=== PATIENT | male | born 1975 | race Two or more races ===

== ENCOUNTER 2020-03-18 08:45 | Inpatient (IN) | payer SELFPAY ==
[~2020-03-18] VITALS: Ht 182.9 cm; Wt 168.0 kg
--- NOTE | 2020-03-18 09:20 | NUR ---
Pt c/o of dyspnea at rest with cough and diarrhea, RA spo2 65% on arrival. Tachycardic, hypertensive. Skin diaphoretic. Denies pain. Covid test negative yesterday.
[2020-03-18 09:35] LABS: BASOPHILS % (AUTO) 1 % (0-1); EOSINOPHILS % (AUTO) 1 % (1-7); LYMPHOCYTES % (AUTO) 8 % (22-44); MEAN CORPUSCULAR HEMOGLOBIN 30.1 pg (27.5-34.5); MEAN CORPUSCULAR HGB CONC 33.1 g/dL (33.2-36.2); MEAN PLATELET VOLUME 8.8 fL (7.4-10.4); MONOCYTES % (AUTO) 6 % (2-9); PLATELET COUNT 241 x10^3/uL (130-400); RED BLOOD COUNT 5.27 x10^6/uL (4.38-5.82)
[2020-03-18 09:38] LABS: PLATELET (DIC) 246 x10^3/uL (130-400)
[2020-03-18 09:47] LABS: ALBUMIN 2.4 g/dL (3.4-5.0); ANION GAP 7 mmol/L (5-15); CALCIUM 8.2 mg/dL (8.5-10.1); CHLORIDE 103 mmol/L (98-107)
[2020-03-18 09:54] LABS: ALANINE AMINOTRANSFERASE 107 U/L (12-78); ALKALINE PHOSPHATASE 102 U/L (45-117); BILIRUBIN,TOTAL 1.1 mg/dL (0.2-1.0); CREATININE 0.95 mg/dL (0.7-1.3); TOTAL PROTEIN 8.1 g/dL (6.4-8.2)
[2020-03-18] MEDS ORDERED: CEFTRIAXONE PMX 1GM/50ML 50 ML ONE (09:59)
[2020-03-18] MEDS ORDERED: AZITHROMYCIN 500 MG in SODIUM CHLORIDE 0.9% 250 ML IVPB ONE (10:00)
[2020-03-18] MEDS ORDERED: PLEASE ENTER ALLERGIES MC SCH (10:00)
[2020-03-18] MEDS ORDERED: CEFTRIAXONE PMX 1GM/50ML 50 ML IVPB ONE (10:00)
--- NOTE | 2020-03-18 10:26 | NUR ---
Pt resting, ABX, fluids infusing.
[2020-03-18] MEDS ORDERED: SODIUM CHLORIDE FLUSH 10ML SYR IVF PRN (10:30)
[2020-03-18] MEDS ORDERED: SODIUM CHLORIDE 0.9% 1,000 ML IV ONE (10:30)
[2020-03-18 10:35] LABS: MD YES
[2020-03-18 10:37] LABS: BAND#(MANUAL) 0.68 x10^3/uL; BANDS%(MANUAL) 5 % (0-7); LYMPH#(MANUAL) 1.09 x10^3/uL (1-3.4); LYMPHS% (MANUAL) 8 % (22-44); MONOS#(MANUAL) 0.27 x10^3/uL (0.3-2.7); MONOS% (MANUAL) 2 % (2-9); REACTIVE LYMPHS # (MANUAL) 0.27 x10^3/uL (0-0); REACTIVE LYMPHS % (MANUAL) 2 % (0-0); SEG#(MANUAL) 11.29 x10^3/uL (1.8-6.8); SEGS% (MANUAL) 83 % (42-75)
[2020-03-18 10:39] LABS: <PLATELET ESTIMATE> ADEQUATE; ANISOCYTOSIS 1+; LARGE PLATELETS 1+; POLYCHROMASIA 1+
[2020-03-18] MEDS: INSULIN LISPRO 100 UNITS/ML, PEN SQ-INSULIN SCH ×3 (11:00→21:22)
[2020-03-18 11:27] LABS: FIBRINOGEN 420 mg/dL (200-340); PROTIME 11.4 Seconds (9.6-11.5); PTT 26 Seconds (25-31)
[2020-03-18 11:28] LABS: D-DIMER (DIC) > 35.20 ug/mlFEU (0.00-0.52)
[2020-03-18] MEDS ORDERED: ASCORBIC ACID 500 MG TABLET ONE (11:56)
[2020-03-18] MEDS ORDERED: CHOLECALCIFEROL 5,000u TAB ONE (11:56)
[2020-03-18] MEDS ORDERED: DEXAMETHASONE 4 MG/ML, 1ML ONE (11:56)
[2020-03-18] MEDS ORDERED: ZINC SULFATE 220 MG CAPSULE ONE (11:56)
[2020-03-18] MEDS ORDERED: BENZONATATE 100 MG CAPSULE ONE (11:57)
[2020-03-18] MEDS ORDERED: DOXYCYCLINE 100MG TABLET ONE (11:57)
[2020-03-18] MEDS: ASCORBIC ACID 500 MG TABLET PO SCH ×3 (11:59→21:20)
[2020-03-18] MEDS: DOXYCYCLINE 100MG TABLET PO SCH ×2 (11:59→21:20)
[2020-03-18] MEDS ORDERED: REMDESIVIR 200 MG in SODIUM CHLORIDE 0.9% 250 ML IVPB ONE (12:00)
[2020-03-18] MEDS: DEXAMETHASONE 4 MG/ML, 1ML IVPush SCH (12:00)
[2020-03-18] MEDS: ZINC SULFATE 220 MG CAPSULE PO SCH (12:00)
[2020-03-18] MEDS: BENZONATATE 100 MG CAPSULE PO SCH ×3 (12:00→21:21)
--- NOTE | 2020-03-18 12:07 | NUR ---
Pt has improved HR. ABX infusing. Pharm request sent for meds. Pt without needs at this time.
[2020-03-18 12:47] LABS: RAPID INFLUENZA A Negative (Negative); RAPID INFLUENZA B Negative (Negative)
[2020-03-18] MEDS ORDERED: ONDANSETRON ODT 4 MG PO PRN (13:00)
[2020-03-18] MEDS ORDERED: MELATONIN 5 MG TABLET PO PRN (13:00)
[2020-03-18] MEDS ORDERED: ONDANSETRON 2MG/ML, 2ML IVPush PRN (13:00)
[2020-03-18] MEDS ORDERED: ACETAMINOPHEN 325 MG TABLET PO PRN (13:00)
[2020-03-18] MEDS ORDERED: ENOXAPARIN 30 MG/0.3 ML SQ SCH (13:00)
[2020-03-18] MEDS ORDERED: OMNIPAQUE 350 MG/ML, 100ML BOTTLE ONE (13:20)
[2020-03-18] MEDS ORDERED: AMLODIPINE 5 MG TABLET ONE ×2 (13:43→13:54)
[2020-03-18] MEDS ORDERED: LISINOPRIL 20 MG TABLET ONE ×2 (13:43→13:58)
[2020-03-18] MEDS: LISINOPRIL 20 MG TABLET PO SCH (13:47)
[2020-03-18] MEDS: AMLODIPINE 5 MG TABLET PO SCH (13:47)
[2020-03-18] MEDS: PIPERACILLIN/TAZO/PMX 4.5GM 100 ML IV SCH ×3 (13:48→23:20)
[2020-03-18] MEDS ORDERED: LISINOPRIL 5 MG TABLET ONE ×2 (13:50→13:54)
[2020-03-18] MEDS: CHOLECALCIFEROL 5,000u TAB PO SCH (13:59)
--- NOTE | 2020-03-18 14:17 | NUR ---
No change in pt baseline from arrival. States not feeling any better. Pt skin no longer diaphoretic, HR and BP improved. Report to floor RN. Waiting for room to be clean and then transfer. Pt updated on POC, VS updated.
[2020-03-18] MEDS: GUAIFENESIN ER 600 MG TABLET PO SCH ×2 (15:14→21:20)
[2020-03-18 15:16] VITALS: BP 177/120
[2020-03-18] MEDS ORDERED: hydrALAzine 20 MG/ML, 1ML IV ONE (15:30)
[2020-03-18] MEDS: ENOXAPARIN 80 MG/0.8 ML SQ SCH (15:36)
[2020-03-18 16:35] VITALS: BP 139/90
[2020-03-18] MEDS: FUROSEMIDE 20 MG/2 ML IV SCH (17:06)
[2020-03-18 19:17] VITALS: BP 139/85
[2020-03-19 00:13] VITALS: BP 140/94
[2020-03-19] MEDS: ENOXAPARIN 80 MG/0.8 ML SQ SCH ×2 (03:27→14:51)
[2020-03-19 05:30] LABS: MEAN CORPUSCULAR HEMOGLOBIN 29.7 pg (27.5-34.5); MEAN CORPUSCULAR HGB CONC 32.6 g/dL (33.2-36.2); MEAN PLATELET VOLUME 8.6 fL (7.4-10.4); PLATELET COUNT 263 x10^3/uL (130-400); RED BLOOD COUNT 4.93 x10^6/uL (4.38-5.82); RED CELL DISTRIBUTION WIDTH 14.3 % (9.4-14.8)
[2020-03-19 05:38] LABS: ALBUMIN 2.2 g/dL (3.4-5.0); ANION GAP 6 mmol/L (5-15); CALCIUM 8.2 mg/dL (8.5-10.1); CHLORIDE 105 mmol/L (98-107)
[2020-03-19] MEDS: ASCORBIC ACID 500 MG TABLET PO SCH ×3 (05:40→16:20)
[2020-03-19] MEDS: PIPERACILLIN/TAZO/PMX 4.5GM 100 ML IV SCH ×2 (05:40→12:02)
[2020-03-19 05:43] LABS: ALANINE AMINOTRANSFERASE 100 U/L (12-78); ALKALINE PHOSPHATASE 86 U/L (45-117); BILIRUBIN,TOTAL 0.7 mg/dL (0.2-1.0); CREATININE 0.85 mg/dL (0.7-1.3); TOTAL PROTEIN 7.6 g/dL (6.4-8.2)
[2020-03-19 06:34] LABS: MD YES
[2020-03-19 06:36] LABS: ANISOCYTOSIS 1+; BAND#(MANUAL) 0.25 x10^3/uL; BANDS%(MANUAL) 2 % (0-7); LYMPH#(MANUAL) 1.65 x10^3/uL (1-3.4); LYMPHS% (MANUAL) 13 % (22-44); METAMYELOCYTES# (MANUAL) 0.13 x10^3/uL (0-0); METAMYELOCYTES% (MANUAL) 1 % (0-1); MONOS#(MANUAL) 0.76 x10^3/uL (0.3-2.7); MONOS% (MANUAL) 6 % (2-9); MYELOCYTES# (MANUAL) 0.13 x10^3/uL (0-0); MYELOCYTES% (MANUAL) 1 % (0-0); POLYCHROMASIA 1+; SEG#(MANUAL) 9.78 x10^3/uL (1.8-6.8); SEGS% (MANUAL) 77 % (42-75)
[2020-03-19 06:37] LABS: <PLATELET ESTIMATE> ADEQUATE; <PLT MORPHOLOGY> NORMAL PLT MORPH
[2020-03-19] MEDS ORDERED: DEXAMETHASONE 4 MG/ML, 5ML ONE (07:19)
[2020-03-19] MEDS: DEXAMETHASONE 4 MG/ML, 1ML IVPush SCH (07:28)
[2020-03-19] MEDS: INSULIN LISPRO 100 UNITS/ML, PEN SQ-INSULIN SCH ×3 (07:28→16:19)
[2020-03-19] MEDS: FUROSEMIDE 20 MG/2 ML IV SCH ×2 (07:28→16:21)
[2020-03-19] MEDS: ZINC SULFATE 220 MG CAPSULE PO SCH (07:29)
[2020-03-19] MEDS: LISINOPRIL 20 MG TABLET PO SCH (07:29)
[2020-03-19] MEDS: DOXYCYCLINE 100MG TABLET PO SCH (07:29)
[2020-03-19] MEDS: BENZONATATE 100 MG CAPSULE PO SCH ×2 (07:29→16:20)
[2020-03-19] MEDS: GUAIFENESIN ER 600 MG TABLET PO SCH (07:29)
[2020-03-19] MEDS: CHOLECALCIFEROL 5,000u TAB PO SCH (07:29)
[2020-03-19] MEDS: AMLODIPINE 5 MG TABLET PO SCH (07:30)
[2020-03-19 07:55] VITALS: BP 155/82
[2020-03-19] MEDS ORDERED: VANCOMYCIN PER PHARMACY MC PRN (08:30)
[2020-03-19] MEDS ORDERED: PHARMACOKINETIC MONITORING MC PRN (09:00)
[2020-03-19] MEDS ORDERED: VANCOMYCIN 3,000 MG in SODIUM CHLORIDE 0.9% 500 ML IV ONE (09:00)
[2020-03-19] MEDS ORDERED: REMDESIVIR 100 MG in SODIUM CHLORIDE 0.9% 250 ML IVPB SCH (12:00)
[2020-03-19 12:51] VITALS: BP 160/98
[2020-03-19] MEDS ORDERED: VANCOMYCIN 2,200 MG in SODIUM CHLORIDE 0.9% 500 ML IV SCH (17:00)
== END 2020-03-19 18:30 | disposition left against medical advice (07) | DRG 871 ==
LOC: ED 09:11 → SUATTDRO 10:52 → EDIP 11:06 → 4WST 14:42
PROVIDERS: ADMIT Hospitalist; ATTEND Internal Medicine
DX: A41.1 Sepsis due to other specified staphylococcus (principal); U07.1 COVID-19; J96.01 Acute respiratory failure with hypoxia; J12.89 Other viral pneumonia; D68.59 Other primary thrombophilia; Z68.43 Body mass index [BMI] 50.0-59.9, adult; I10 Essential (primary) hypertension; E11.9 Type 2 diabetes mellitus without complications; Z53.29 Procedure and treatment not carried out because of patient's decision for other reasons; G47.33 Obstructive sleep apnea (adult) (pediatric); E66.01 Morbid (severe) obesity due to excess calories; I27.20 Pulmonary hypertension, unspecified; Z91.19 Patient's noncompliance with other medical treatment and regimen; Z79.899 Other long term (current) drug therapy
CPT/HCPCS: 36415; 71045; 71275; 80053; 82728; 82962; 83036; 83605; 83615; 83880; 84145; 85025; 85049; 85379; 85384; 85610; 85730; 86140; 87040; 87081; 87400; 93005; 93306; 96365; 96375; 99285; G0378; J0456; J0696; J1100; J1650; J2543; J3370; Q9967; J0360; J1815; J1940; J7030; J7040; J7050; U0003